=== PATIENT | female | born 1995 | race African-American/Black ===

== ENCOUNTER 2017-10-21 20:22 | Emergency (ER) | payer OTHER ==
[2017-10-21 21:29] LABS: KETONE, URINE AUTO RFX NEGATIVE (NEGATIVE); NITRITE, URINE AUTO RFX NEGATIVE (NEGATIVE); RBC, URINE AUTO RFX 2 /HPF (0-3); SPECIFIC GRAVITY UR AUTO RFX 1.011 (1.002-1.035); SQUAM EPITHELIAL CELL UR AURFX 2 /HPF (0-6); WBC, URINE AUTO RFX 2 /HPF (0-3)
[2017-10-21 21:59] LABS: LEUKOCYTE ESTERASE UR AUTO RFX 3+ (NEGATIVE)
== END 2017-10-21 22:34 | disposition home or self-care (01) ==
LOC: M ED 20:22
DX: B37.3 Candidiasis of vulva and vagina (principal); L25.9 Unspecified contact dermatitis, unspecified cause
CPT/HCPCS: 81001

== ENCOUNTER → 2018-06-11 | Outpatient (REF) ==
[2018-06-13 15:20] LABS: QuantiFERON-TB Gold Plus Negative (Negative)
== END ==
LOC: M LAB 10:54
DX: Z02.1 Encounter for pre-employment examination (principal)

== ENCOUNTER 2018-07-09 11:57 | Emergency (ER) | payer OTHER ==
[2018-07-09 12:47] LABS: KETONE, URINE AUTO RFX NEGATIVE (NEGATIVE); MUCUS, URINE RFX SMALL (NEGATIVE); NITRITE, URINE AUTO RFX NEGATIVE (NEGATIVE); RBC, URINE AUTO RFX 1 /HPF (0-3); SQUAM EPITHELIAL CELL UR AURFX 7 /HPF (0-6); WBC, URINE AUTO RFX 8 /HPF (0-3)
[2018-07-09] MEDS: NS 1,000 ML IV (12:49)
[2018-07-09 12:50] LABS: BASO % 0.5 % (0.0-1.0); EOS # 0.1 10^3/uL (0.0-0.50); EOS % 1.6 % (0.0-3.0); HEMATOCRIT 40.5 % (36.0-47.0); HEMOGLOBIN 13.5 g/dl (12.0-15.5); IMMATURE GRANULOCYTE % 0.2 % (0-3.0); LEUKOCYTE ESTERASE UR AUTO RFX 2+ (NEGATIVE); LYMPH # 3.7 10^3/uL (1.5-6.5); LYMPH % 42.3 % (24.0-44.0); MEAN CORPUSCULAR HEMOGLOBIN 30.5 pg (27.0-33.0); MEAN CORPUSCULAR HGB CONC 33.3 g/dl (32.0-36.5); MEAN CORPUSCULAR VOLUME 91.6 fl (80.0-96.0); MONO # 0.7 10^3/uL (0.0-0.8); MONO % 8.1 % (0.0-5.0); NEUTROPHILS # 4.1 10^3/uL (1.8-7.7); NEUTROPHILS % 47.3 % (36.0-66.0); PLATELET COUNT, AUTOMATED 366 10^3/uL (150-450); RED BLOOD COUNT 4.42 10^6/uL (4.00-5.40); RED CELL DISTRIBUTION WIDTH 12.6 % (11.5-14.5); WHITE BLOOD COUNT 8.6 10^3/uL (4.0-10.0)
[2018-07-09 13:08] LABS: ALBUMIN 3.9 GM/DL (3.2-5.2); ALKALINE PHOSPHATASE 52 U/L (45-117); ALT/SGPT 22 U/L (12-78); AMYLASE 76 U/L (25-115); ANION GAP 7 MEQ/L (8-16); AST/SGOT 14 U/L (7-37); BILIRUBIN,DIRECT 0.2 MG/DL (0.0-0.2); BILIRUBIN,TOTAL 0.9 MG/DL (0.2-1.0); BLOOD UREA NITROGEN 10 MG/DL (7-18); CALCIUM LEVEL 9.3 MG/DL (8.5-10.1); CARBON DIOXIDE LEVEL 26 MEQ/L (21-32); CHLORIDE LEVEL 106 MEQ/L (98-107); CREATININE FOR GFR 0.72 MG/DL (0.55-1.30); GLOMERULAR FILTRATION RATE > 60.0 (>60); GLUCOSE, FASTING 84 MG/DL (70-100); LIPASE 95 U/L (73-393); POTASSIUM SERUM 3.4 MEQ/L (3.5-5.1); SODIUM LEVEL 139 MEQ/L (136-145); TOTAL PROTEIN 8.8 GM/DL (6.4-8.2)
== END 2018-07-09 13:55 | disposition home or self-care (01) ==
LOC: M ED 11:57
DX: K59.00 Constipation, unspecified (principal); R11.0 Nausea
CPT/HCPCS: 74021

== ENCOUNTER 2018-11-07 06:45 | Emergency (ER) | payer OTHER, SELFPAY ==
[~2018-11-07] VITALS: Ht 154.9 cm; Wt 81.8 kg
[~2018-11-07 06:45] MED LIST: DIFL150T PO; MACR100C43 PO; MINE1ENE PR; [UNRECOGNIZED DRUG - CODE] EXT
--- NOTE | 2018-11-07 10:07 | REP ---
Left shoulder three view : There is no fracture or dislocation. Mineralization and joint spaces are normal. There are no calcifications or foreign bodies. Impression: Negative left shoulder . Electronically Signed by Cisco Moses MD 11/07/2018 09:59 A
--- NOTE | 2018-11-07 10:08 | REP ---
Left wrist four views : There is no fracture or dislocation. Mineralization and joint spaces are normal. There are no calcifications or foreign bodies. Impression: Negative left wrist . Electronically Signed by Cisco Moses MD 11/07/2018 09:59 A
[2018-11-07] MEDS ORDERED: ACETAMINOPHEN TAB 650MG DOSE (2X325MG) PO ONE (10:15)
--- NOTE | 2018-11-07 10:17 | REP ---
AP pelvis single view : There is no fracture or dislocation. Mineralization and joint spaces are normal. There are no calcifications or foreign bodies. Impression: Negative AP pelvis Left hip two views : There is no fracture or dislocation. Mineralization and joint spaces are normal. There are no calcifications or foreign bodies. Impression: Negative Left hip . . Electronically Signed by Cisco Moses MD 11/07/2018 10:09 A
[2018-11-07 10:22] VITALS: BP 113/63
== END 2018-11-07 10:33 | disposition home or self-care (01) ==
LOC: M ED 06:45
DX: S70.02XA Contusion of left hip, initial encounter (principal); S40.012A Contusion of left shoulder, initial encounter; S60.212A Contusion of left wrist, initial encounter; V47.5XXA Car driver injured in collision with fixed or stationary object in traffic accident, initial encounter; Y92.410 Unspecified street and highway as the place of occurrence of the external cause

== ENCOUNTER 2019-04-26 09:32 | Emergency (ER) | payer OTHER ==
[~2019-04-26] VITALS: Ht 154.9 cm; Wt 83.2 kg
[2019-04-26] MEDS ORDERED: CYCL10TA (09:38)
[2019-04-26] MEDS ORDERED: NAPR-885 (09:38)
[2019-04-26] MEDS ORDERED: ACETAMINOPHEN 500 MG TAB PO ONE (11:00)
[2019-04-26] MEDS ORDERED: LIDOCAINE 2% MDV 20 ML VIAL SC ONE (11:00)
[2019-04-26 11:43] VITALS: BP 123/83
== END 2019-04-26 11:56 | disposition home or self-care (01) ==
LOC: M ED 09:32
DX: S16.1XXA Strain of muscle, fascia and tendon at neck level, initial encounter (principal); M62.830 Muscle spasm of back; X50.0XXA Overexertion from strenuous movement or load, initial encounter; Y92.89 Other specified places as the place of occurrence of the external cause; Y99.0 Civilian activity done for income or pay; Z79.899 Other long term (current) drug therapy; Z79.1 Long term (current) use of non-steroidal anti-inflammatories (NSAID)